=== PATIENT | female | born 1945 | race Caucasian/White ===

== ENCOUNTER 2022-07-19 12:49 | Outpatient (CLI) | payer MEDICARE, SELFPAY ==
[2022-07-19 22:24] LABS: C Reactive Protein* 4.6 mg/dL (0.5-1.0)
== END 2022-07-19 12:50 | disposition home or self-care (01) ==
LOC: LKVREF 13:11
PROVIDERS: PCP Physician Assistant Medical; Visit Provider Nurse Practitioner Family
DX: R53.83 Other fatigue (principal); R53.1 Weakness; N39.0 Urinary tract infection, site not specified
CPT/HCPCS: 86140; 87086; 87186

== ENCOUNTER 2022-07-22 05:33 | Emergency (ER) | payer MEDICARE, SELFPAY ==
[2022-07-22] VITALS (9 sets, daily range): BP systolic 97–121; BP diastolic 64–73; PULSE 79–90; RESP 14–18; TEMP 37.3; O2SAT 94–96; BMI 22.5
--- NOTE | 2022-07-22 06:15 | CRLHL7_ITS ---
For Patients: As a result of the Cures Act, medical imaging exams and procedure reports are released immediately into your electronic medical record. You may view this report before your referring provider. If you have questions, please contact your health care provider. Indication: Pain Technique: Three images of the sternum were required Comparison: The contemporaneously chest x-ray hand a July 19, 2022 chest x-ray Findings: Bone mineral density is decreased. I see no fracture or destructive process involving the sternum or the xiphoid process. Impression: Decreased bone mineral density. No fracture or destructive process observed regarding the sternum or the xiphoid. Dictated by Gianni Junior MD @ 07/22/2022 6:50:16 AM (Electronically Signed)
--- NOTE | 2022-07-22 06:16 | CRLHL7_ITS ---
For Patients: As a result of the Cures Act, medical imaging exams and procedure reports are released immediately into your electronic medical record. You may view this report before your referring provider. If you have questions, please contact your health care provider. INDICATION: Pain COMPARISON: July 19, 2022 TECHNIQUE: Single-view study FINDINGS: TUBES AND LINES: None. HEART AND MEDIASTINUM: The heart size is normal. The mediastinal contour appears normal for patient age.Calcified mediastinal lymph nodes consistent with remote granulomatous infection LUNGS AND PLEURAL SPACES: The lungs appear normal.The pleural spaces are unremarkable. OSSEOUS STRUCTURES: Age-appropriate appearance. No acute focal finding. IMPRESSION: No evidence of active pulmonary disease. Dictated by Gianni Junior MD @ 07/22/2022 6:48:03 AM (Electronically Signed)
[2022-07-22] MEDS: IBUPROFEN 200 MG TABLET 600 MG PO (06:39)
[2022-07-22] MEDS: HYDROCODONE-ACETAMIN 5-325 MG 1 TAB 2 TAB PO (06:39)
--- NOTE | 2022-07-22 06:55 | ED.CHESTPAIN ---
HPI - Chest Pain General Chief Complaint: Chest Pain Stated Complaint: Chest pain Time Seen by Provider: 07/22/22 05:59 History of Present Illness HPI narrative: 77-year-old woman presenting to the emergency department with complaint of chest pain. 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 She does not have known coronary vascular disease. Hurts to breathe. This pain is been present in some form over the last week. Was evaluated a few days ago in clinic. She says the did not do any imaging but review of records to appears that there was a chest x-ray done and referred to physical therapy; the latter more for the cervical neck pain of more chronic duration. Had been complaining of some urgency and frequency according to records though Mrs. Reilly notes urgency, and initiated on Bactrim. She says these symptoms have improved. Reviewing urinalysis does show 5-10 white cells. And cultured significant colonies of E coli with resistance to Bactrim. I do see from vitals at the time 3 days ago also that she had a fever. Has not otherwise had cough or cold symptoms. 4+ weeks ago was diagnosed with COVID though. Has had fatigue and achiness since. Looks like also a history of PMR. Has taken ibuprofen which helps maybe a little bit also half a tablet of 's residual oxycodone from a hip procedure in [place]. Related Data Home Medications Medication Instructions Recorded Confirmed alendronate 70 mg tablet ea PO 07/19/22 07/19/22 bupropion HCl 300 mg 24 hr tablet, ea PO 07/19/22 07/19/22 extended release valacyclovir 500 mg tablet 500 mg PO 07/19/22 07/19/22 biotin 5 mg capsule 5 mg PO DAILY 07/22/22 07/22/22 Previous Rx's Medication Instructions Recorded codeine sulfate 30 mg tablet 30 mg PO TID PRN pain, cough #20 07/19/22 tabs nitrofurantoin 100 mg PO BID #10 caps 07/22/22 monohydrate/macrocrystals 100 mg capsule (Macrobid) Allergies Allergy/AdvReac Type Severity Reaction Status Date / Time amoxicillin [From Augmentin] Allergy Intermediate Shortness Verified 07/22/22 05:52 of Breath clavulanic acid Allergy Intermediate Shortness Verified 07/22/22 05:52 [From Augmentin] of Breath Review of Systems Status of ROS Reports: 10 or more systems reviewed and unremarkable except as noted in History and below [facility] Medical History Chest pain Fatigue Neck pain UTI (urinary tract infection) Social History Smoking Status: Never smoker Do you use any of these nicotine containing products: None Second hand tobacco smoke exposure: No How often do you have a drink containing alcohol: never AUDIT-C Alcohol total score: 0 Non-prescribed substance use: denies use Exam Narrative Exam Narrative: Pleasant. NAD. Certainly uncomfortable with movement. Skin is warm and dry no apparent rash or evidence of trauma. Lungs are clear. No supraclavicular crepitus. No pain to palpation over the upper chest clavicles. There is reproducible pain to palpation of the xiphoid up to the mid sternum. This seems to set off a cascade of pain pulses and then more tender in the left chest as well. Abdomen otherwise is soft nontender. Extremities are without edema. She has good strength throughout moving all extremities without difficulty. Well perfused. Const Vital Signs, click to edit/add: Vital Signs - 24 hr 07/22/22 05:37 07/22/22 06:09 07/22/22 06:15 Temperature 99.1 F Pulse Rate 89 88 Pulse Rate [Right Pulse Oximeter] 82 Respiratory Rate 14 Blood Pressure Blood Pressure [Left Upper Arm] 121/64 Pulse Oximetry 96 95 95 Oxygen Delivery Method Room Air 07/22/22 07:08 07/22/22 06:39 07/22/22 07:02 Temperature Pulse Rate 90 Pulse Rate [Right Pulse Oximeter] Respiratory Rate Blood Pressure 97/73 Blood Pressure [Left Upper Arm] Pulse Oximetry 95 94 Oxygen Delivery Method 07/22/22 07:11 07/22/22 07:15 07/22/22 08:52 Temperature Pulse Rate 88 86 Pulse Rate [Right Pulse Oximeter] 79 Respiratory Rate 18 Blood Pressure Blood Pressure [Left Upper Arm] 114/68 Pulse Oximetry 94 94 95 Oxygen Delivery Method Room Air Documenting provider has reviewed patient's vital signs: yes Course Vital Signs Vital signs: Initial Vital Signs Temperature 99.1 F 07/22/22 05:37 Temperature Source Temporal Artery Scan 07/22/22 05:37 Pulse Rate 82 07/22/22 05:37 Respiratory Rate 14 07/22/22 05:37 Blood Pressure 121/64 07/22/22 05:37 Blood Pressure Mean 83 07/22/22 05:37 Blood Pressure Position Supine 07/22/22 05:37 Pulse Oximetry 96 07/22/22 05:37 Oxygen Delivery Method 07/22/22 05:37 Vital Signs Temperature 99.1 F 07/22/22 05:37 Pulse Rate 82 07/22/22 05:37 Respiratory Rate 14 07/22/22 05:37 Blood Pressure 121/64 07/22/22 05:37 Pulse Oximetry 96 07/22/22 05:37 Oxygen Delivery Method 07/22/22 05:37 Temperature 99.1 F 07/22/22 05:37 Pulse Rate 79 07/22/22 08:52 Respiratory Rate 18 07/22/22 08:52 Blood Pressure 114/68 07/22/22 08:52 Pulse Oximetry 95 07/22/22 08:52 Oxygen Delivery Method 07/22/22 08:52 MDM - Chest Pain MDM Narrative Medical decision making narrative: I was called back to the room for worsening pain brought on by the exam. Ordered for ibuprofen and couple tablets of [place] which really help settle things down. X-rays focus on the sternum anterior chest wall did not reveal any acute bony abnormality. In particular radiology noted decreased bone mineral density. Does seem to have chest wall pain possibly costochondritis In the setting of PMR this might amplify symptoms and require further evaluation/lab work should this continue. Steroids might be necessary. She had not been taking regular NSAIDs. Will recommend that at this point for up to a week. This does not appear to be cardiovascular in origin. Medical Records Data Attestation: I reviewed the patient's medical records. Lab Data Attestation: I reviewed the patient's lab results. ECG Data Attestation: I personally reviewed and interpreted this ECG as follows: (Normal sinus rhythm rate of 91) Discharge Plan Discharge Clinical Impression: Chest wall pain, Cystitis Patient Disposition: Home w/ Parent or Adult Condition: Stable Additional Instructions: Hydrate. I feel like this helps pain. I looked again and I do see that there was a referral to physical therapy. Sounds like it was more related to your neck but it might be helpful otherwise as well. With a little food and for the next 5 days I would like you to take either 600 mg of ibuprofen 3 times daily or around 400 mg of naproxen 2 times daily. Consider calling for an appointment for later in the week with your primary care provider if this just isn't getting better. Remember on the days you are taking [place] perhaps take a tablet or 2 of senna. Stop the Bactrim and start cephalexin. Cephalexin and [place] from [facility]. Prescriptions: No Action bupropion HCl 300 mg tablet extended release 24 hr PO Label Comments: TAKE 1 TABLET BY MOUTH EVERY MORNING valacyclovir 500 mg tablet 500 mg PO Label Comments: TAKE 1 TABLET (500 MG) BY MOUTH 2 TIMES DAILY FOR 3 DAYS DURING FLARE UPS. alendronate 70 mg tablet PO Label Comments: TAKE 1 TABLET BY MOUTH EVERY WEEK codeine sulfate 30 mg tablet 30 mg PO TID PRN (Reason: pain, cough) Qty: 20 0RF biotin 5 mg capsule 5 mg PO DAILY nitrofurantoin monohyd/m-cryst [Macrobid] 100 mg capsule 100 mg PO BID Qty: 10 0RF Rx Instructions: must administer with a meal/food Follow Up/Referrals: Vaibhav Malone PA-C [Primary Care Provider] - Stand Alone Forms: MyHealth Info Instructions
== END 2022-07-22 08:53 | disposition home or self-care (01) ==
PROVIDERS: Emergency Provider Family Medicine; PCP Physician Assistant Medical
DX: R07.89 Other chest pain (principal); N30.90 Cystitis, unspecified without hematuria
CPT/HCPCS: 71045; 71120; 93005; 94761; 99284; 99285; A9270

== ENCOUNTER 2022-10-17 08:45 | Outpatient (RCR) | payer MEDICARE, SELFPAY ==
--- NOTE | 2022-07-31 07:39 | PT.OPE ---
PT [place] [facility] Eval PT [facility] Outpatient Eval Start: 07/30/22 12:31 Freq: Status: Active Protocol: Document 07/30/22 18:00 CJT (Rec: 07/31/22 07:39 CJT [id number]) E-signed By Deric Miller PT Physical Therapy Outpatient Evaluation Insurance Information Recert Due Date 09/13/21 Insurance Name Medicare B Medical Diagnosis M54.2 - neck pain Treating Diagnosis M54.2 - neck pain Referring Bridget Medina MD; PCP: Vaibhav Malone PA-C Subjective Subjective Pt presents with complaints of chronic neck pain. Notes that she though ther pain was initially cardiac related. Went to the Ed with concerns for an NH. Reports her pain was originating in her L shoulder region and radiating into her L arm/elbow, and beneath her L breast. Was having difficulty originally determining if her pain was radiating from her clavicular region up to her neck or from her neck down to her clavicular region on L. Heat and massage seems to help. Feels a twinge in her L rib region when she takes a deep breath. Complains of frequent headaches. Used to have migraines. Rarely has these anymore. Continues to have headaches in the frontal region of skull, L worse than R. IBP seems to help. Pain Comments Previously 03/13 Currently 11/11 Date of Last Physician Visit 07/24/22 Current Work Status Retired Precautions Therapy Limitations/Systems Review Not Limited Objective Other/Pertinent Objective Cervical ROM Extension - 34 *pain in L posterior cervical spine Flexion - 62 - feels a pull on L R/L Side Bend - 20/14 - Pain on L with both motions R/L Rotation - 55/48 R Shoulder ROM - WNL L Shoulder ROM - WNL Cervical Strength Extension - 5/5 MMT Flexion - 4+/5 MMT R/L Side Bend - 5/5 MMT R/L Rotation - 5/5 MMT R Shoulder Strength - 5/5 MMT for all L Shoulder Strength - 5/5 MMT for all *Pain in L UT region with shoulder flexion and abduction Palpation: pt reports tenderness/pain with palpation to B suboccipitals, cervical paraspinals, UT, levator, pec minor, and pec major Posture: rounded shoulders Assessment Assessment/Impression Pt is a 77 year old female who presents to OP PT clinic with complaints of chronic neck pain. Pain is located in L UT region made worse with rotation, sidebending, arm elevation. PT sleeps on L side with 1 pillow under her head. Has been getting relatively consistent headaches for many years usually worse on L. Testing indicates muscle tightness in L > R cervical spine and pt is tender to palpation throughout cervical and scapular regions B. The nature of the pts condition was explained and all questions were answered to the pts satisfaction. Skilled PT services are medically necessary to address deficits and return patient to highest level of function. Recommend physical therapy sessions 2/ week for 6 weeks. Pt agrees with this plan. Printout of HEP was given for I completion and pt gives verbal understanding of each exercise . Plan of Care Rehabilitation Potential Excellent Physical Therapy Goals STG - To be completed in 2-3 weeks: 1. Pt will demonstrate improved cervical strength to 5/5 MMT in all directions to provide greater support to cervical spine and head. 2. Pt will report reduction in neck pain by factor of 2 so that they may roll over in bed without waking due to pain. 3. Pt will report reduction in headache intensity by factor of 2 so that they may remain functional at home when headaches do occur. LTG - To be completed in 6-8 weeks: 1. Pt to be I with HEP so that they may I manage progression of symptoms. 2. Pt will demo equal and pain free cervical rotation ROM and lateral flexion ROM so that they may look over shoulder while driving to watch for traffic. 3. Pt will report absence of neck pain with all activities so that they may return to participating in recreational activities with their friends and family. 4. Pt will report reduction of frequency of headaches to 2/ week so that headaches minimally interfere with them during working hours. 5. Pt will report ability to sleep throughout the night without waking due to pain so that they may wake well rested with reduced mental fatigue during working hours. Treatment Plan/Direct Interventions Electrical Stimulation,Heat, Ice/Cold/Vasopneumatic,Joint Mobilization,Manual Therapy, Self-Care/Home Management, Therapeutic Exercises Frequency/Duration 2/week for 6 weeks Patient Will Be Discharged From Therapy Completion of LTG(s),Skills Plateau,Independent w/HEP, Independently Progressing Evaluation Billing Untimed Code Treatment Minutes 20 PT Eval No Charge No Complexity Low Certification Information Initial Certification Date 07/30/22 Ending Certification Date 09/13/22 Provider Signature Shows Agreement With POC & Medical Necessity Physician Signature & Date Requested Please Sign/Date Here Physician Comment/Change : Physician NPI Number #
--- NOTE | 2022-08-28 09:12 | PT.OPDN ---
PT [place] Outpatient Daily Note PT [facility] Outpatient Daily Note Start: 07/30/22 12:31 Freq: Status: Active Protocol: Document 08/28/22 08:08 APRYL (Rec: 08/28/22 09:11 CJT [id number]) E-signed By Deric Miller, PT PT OP Daily Progress Note Visit Information Note Type Recert/Progress Note Visit Number 6 Insurance Authorized Visits 100 Physician Authorized Visits eval and treat Insurance Information Recert Due Date 09/13/22 Insurance Name Medicare B Medical Diagnosis M54.2 - neck pain Treating Diagnosis M54.2 - neck pain Referring Bridget Medina MD; PCP: Vaibhav Malone PA-C Subjective Subjective Pt quite sore this AM. Was outside shoveling snow and her back feels a bit tight. Pt reports that her L side neck pain has remained unchanged since starting therapy at our clinic. Pain Comments Previously 03/13 Currently 11/11 Home Exercise Home Exercise Comments [id number] Objective Other/Pertinent Objective Cervical ROM: initial (today) Extension - 34 *pain in L posterior cervical spine (46) Flexion - 62 - feels a pull on L (59) R/L Side Bend - 20/14 - Pain on L with both motions (/) R/L Rotation - 55/48 (62/65) R Shoulder ROM - WNL L Shoulder ROM - WNL Cervical Strength Extension - 5/5 MMT Flexion - 5/5 MMT R/L Side Bend - 5/5 MMT R/L Rotation - 5/5 MMT R Shoulder Strength - 5/5 MMT for all L Shoulder Strength - 5/5 MMT for all *Pain in L UT region with shoulder flexion and abduction Palpation: pt reports tenderness/pain with palpation to B suboccipitals, cervical paraspinals, UT, levator, pec minor, and pec major Posture: rounded shoulders Leg Length R: 84.5 cm L: 87.0 cm *2.5cm difference Patient Instructed in Risks/Benefits Yes Therapeutic Exercise Therapeutic Exercise Minutes (minutes) 6 Therapeutic Exercise: To Restore Reverse UT stretch x 60 ea Functional Status Supine passive levator stretch x 60 ea Self-STM with Theracane to L levator insertion to diminish spasm Manual Therapy Techniques Manual Therapy Minutes (minutes) 35 Manual Therapy Techniques STM performed to B suboccipitals, cervical paraspinals, scalenes, SCM, UT , levator, pec minor/major to reduce tissue tension and improve extensibility. TPR to L levator in prone to diminish spasm Treatment Minutes Timed Code Treatment Minutes 41 Total Treatment Time 41 Billing Units Manual Therapy Units 3 Assessment/Impression Assessment/Impression Norma shows significantly improved cervical AROM today and strength measures 5/5 MMT for all directions. She continues to note that the pain she is experiencing in her L cervical spine has remained unchanged since starting her physical therapy. At this point I do suspect that arthritic changes may be causing chronic spasms in pts neck and I feel some imaging of Norma's cervical spine would be beneficial to determine the extent of these potential changes and allow us to see if any nerve impingement may be causing pts perceived pain in this L levator muscle. Both x-rays and MRI would be helpful to determine this. I have encouraged Norma to continue to consistent stretching and self-massage to this region and she should also continue with her cervical strength exercises that were issued to her on Friday. Pt agrees with this plan. I have let her know that I will reach out to her PCP regarding imaging. Plan of Care Physical Therapy Goals STG - To be completed in 2-3 weeks: 1. Pt will demonstrate improved cervical strength to 5/5 MMT in all directions to provide greater support to cervical spine and head. MET 2. Pt will report reduction in neck pain by factor of 2 so that they may roll over in bed without waking due to pain. MET 3. Pt will report reduction in headache intensity by factor of 2 so that they may remain functional at home when headaches do occur. LTG - To be completed in 6-8 weeks: 1. Pt to be I with HEP so that they may I manage progression of symptoms. 2. Pt will demo equal and pain free cervical rotation ROM and lateral flexion ROM so that they may look over shoulder while driving to watch for traffic. MET 3. Pt will report absence of neck pain with all activities so that they may return to participating in recreational activities with their friends and family. 4. Pt will report reduction of frequency of headaches to 2/ week so that headaches minimally interfere with them during working hours. 5. Pt will report ability to sleep throughout the night without waking due to pain so that they may wake well rested with reduced mental fatigue during working hours. Daily Plan of Care Continue per POC
== END 2023-02-20 23:59 | disposition home or self-care (01) ==
PROVIDERS: PCP Physician Assistant Medical; Visit Provider Nurse Practitioner Family
DX: M54.2 Cervicalgia (principal); Z51.89 Encounter for other specified aftercare
CPT/HCPCS: 97035; 97110; 97140; 97161

== ENCOUNTER 2023-03-31 08:15 | Outpatient (RCR) | payer MEDICARE, SELFPAY | END 2023-06-27 07:46 | disposition home or self-care (01) | PROVIDERS: PCP Physician Assistant Medical; Visit Provider Student in an Organized Health Care Education/Training Program | DX: M54.50 Low back pain, unspecified (principal); Z51.89 Encounter for other specified aftercare | CPT/HCPCS: 97110; 97140; 97161 ==